=== PATIENT | male | born 1995 | race Caucasian/White ===

== ENCOUNTER 2021-03-12 12:27 | Emergency (ER) | payer SELFPAY ==
[2021-03-12 12:31] VITALS: BP 128/87; PULSE 79; RESP 16; TEMP 36.8; O2SAT 97
--- NOTE | 2021-03-12 12:45 | W.ED.GENAD ---
Discharge Plan Disposition Patient Disposition: HOME Condition: Improving Discharge Details Clinical Impression: Ingrown left big toenail Primary Care Provider: [facility] ED Provider: Babatunde Taylor Home Meds and New Rx's Prescriptions: New cephalexin 500 mg capsule 500 mg PO TID 15 Days Qty: 45 RF: 0 Discharge Instructions Additional Instructions: Please continue warm soaks 3-4 times daily. Take antibiotics as prescribed. Our care management team will assist you in establishing routine primary care as well as follow-up with podiatry. Return to the emergency department for any acute concerns Medical Decision Making 25-year-old male presents from home complaining of days of recurrence of left great toenail ingrown with surrounding swelling, pain. He is not systemically ill. Patient consented as to risk benefits of wedge resection of the lateral nail bed. He was anesthetized, prepped and draped in standard sterile fashion, and a lateral wedge of nail was removed and the area dressed. Patient has had recurrences of ingrown toenails over time and requests podiatry follow-up which I feel is reasonable. Additionally, will ask care management to help arrange establishment of primary care. HPI General Mode of arrival: ambulatory. Date/Time Provider Initiated Documentation: 03/12/21 12:28. Limitations to Documentation: no limitations. Information obtained by: patient. History of Present Illness 25 year old M presents to the emergency department with the chief complaint of Left great toe ingrown and infected, described as moderate, Quality is described as dull and constant, and is localized to the left and lower extremity. Patient reports no radiation. Patient started experiencing this day(s) and it has been constant. No relieving factors improve symptom(s), No exacerbating factors reported . Patient notes denies fever/chills. Patient did receive the following treatments prior to arrival, none Related Data Home Medications Medication Instructions Recorded Confirmed cephalexin 500 mg PO TID 15 Days #45 cap 03/12/21 Previous Rx's Medication Instructions Recorded cephalexin 500 mg PO TID 15 Days #45 cap 03/12/21 Allergies Allergy/AdvReac Type Severity Reaction Status Date / Time No Known Allergies Allergy Unverified 03/12/21 12:34 General Stated Complaint: GenMedical VANNESA: 5 Review of Systems Narrative: No fever or chills. Has had similar ingrown toenails in the past. No current insurance. 6 systems reviewed and otherwise negative [facility] Social History Smoking/Tobacco Use Status: Current-Occasional Tobacco Type: cigarettes Smoking risk assessment performed?: Yes Alcohol Intake: current Alcohol Intake frequency: a few times a week Alcohol type: beer and hard liquor Drug use: Daily Substance use type: marijuana Do you feel safe at home: Yes Do you feel safe in your relationship?: Yes Exam Narrative Exam Narrative: GEN: awake, alert, oriented 3. Pleasant, well groomed, interactive. HEAD: Normocephalic, atraumatic EYES: PERRL, EOMI EXT: Full ROM, nail, swelling, tenderness. Left great toenail with lateral ingrown Neuro: Grossly normal neurologic exam, conversant, interactive. Psych: Speech fluent, thoughts congruent, affect normal Course Vital Signs Vital signs: Vital Signs Temperature 36.8 C 03/12/21 12:31 Pulse 79 03/12/21 12:31 Respiratory Rate 16 03/12/21 12:31 Blood Pressure 128/87 03/12/21 12:31 Pulse Oximetry 97 03/12/21 12:31 Temperature 36.8 C 03/12/21 12:31 Pulse 79 03/12/21 12:31 Respiratory Rate 16 03/12/21 12:31 Respiratory Effort 03/12/21 12:35 Blood Pressure 128/87 03/12/21 12:31 Blood Pressure Position Supine 03/12/21 12:31 Pulse Oximetry 97 03/12/21 12:31 Oxygen Delivery Method Room Air 03/12/21 12:31 Oxygen Flow Rate 0 03/12/21 12:31 Pain Level 2 03/12/21 12:31 Comment 03/12/21 12:31
[2021-03-12] MEDS: Cephalexin 500 MG CAP PO (13:27)
--- NOTE | 2021-03-12 13:30 | NUR.NOTE ---
Addendum entered by Alissa Santos 03/12/21 13:32: Referral given to Care Management to get PCP for patient and help patient to obtain insurance. Alissa Santos Original Note: Nursing Note: Referral faxed to Dr. Olivares, podiatry, for follow up of recurrent ingrown toenails within 1 to 2 weeks. Provider note faxed to Dr. Olivares also. Alissa Santos
== END 2021-03-12 13:29 | disposition home or self-care (01) ==
PROVIDERS: Emergency Provider Emergency Medicine
DX: L60.0 Ingrowing nail (principal)
CPT/HCPCS: 11730

== ENCOUNTER 2025-09-07 10:09 | Emergency (ER) | payer OTHER, SELFPAY ==
--- NOTE | 2025-09-07 10:15 | DI.RAD_ITS ---
Exam(s) XR SHOULDER RT COMPLETE 2+V EXAM: XR SHOULDER RT COMPLETE 2+V CLINICAL HISTORY: R shoulder, fall yesterday. TECHNIQUE: 2D digital imaging was performed. COMPARISON: No exams were available for comparison FINDINGS: Four views No evidence of fracture or dislocation or abnormal soft tissue calcifications. Subacromial space appears unremarkable. Coracoid process is intact. There are no degenerative changes in the glenohumeral joint nor in the AC joint. IMPRESSION: No significant osseous findings in the shoulder. DATA REPOSITORY: RADIATION DOSE DELIVERED:
[2025-09-07 10:22] VITALS: BP 132/80; PULSE 88; RESP 18; TEMP 36.6; O2SAT 98
--- NOTE | 2025-09-07 10:57 | W.ED.GENAD ---
Discharge Plan Disposition Patient Disposition: Home Condition: Stable Discharge Details Clinical Impression: Sprain of right shoulder Primary Care Provider: [facility] ED Provider: Alexis Reed Home Meds and New Rx's Prescriptions: No Action No Known Home Meds Discharge Instructions Instructions: Shoulder Sprain ED Additional Instructions: You were seen in the emergency department for the sprain of your right shoulder from a skiing injury, this is your dominant hand so will likely affect your work and I have given you a work note for no pushing or pulling activities, no lifting over 5 pounds until orthopedics gives you further limitations. Please rest and ice the shoulder, perform pendulum exercises at least once per hour to maintain range of motion, I have placed you on the orthopedic follow-up list and they should call you this week for scheduling. I am concerned that you have a possible rotator cuff tendon injury versus an AC separation. Please use therapeutic dosing of Tylenol (acetamenophen) & Advil (ibuprofen) in an alternating fashion as follows: Take 1000mg of Tylenol every 6 hours without missing doses- that is 4 times per day. Group Home in between the Tylenol dosings, take 400-600mg of Advil also on a 6 hour schedule, that is also 4 times per day. The daily maximum dosing of Tylenol is 4000mg, and the daily maximum dosing of Advil is 2400mg. This is safe to do for weeks. Please note that some common cold medications & prescription pain medications may contain acetamenophen and you need to read OTC drug labels and factor that in to maximum daily dosings. Stand Alone Forms: Portal Information, Work Release Referrals: [facility] [Provider Group] Discharge Data Discharge Date/Time-TO BE ENTERED AT DEPARTURE: 09/07/25 11:30 HPI General Date/Time Provider Initiated Documentation: 09/07/25 10:27. HPI Narrative: 30 year-old female presents to ED today by POV/ambulating with a chief complaint of fell skiing yesterday- injuring his R shoulder, R-hand dominant. Quality described as right shoulder pain in the suprascapular/deltoid region, no radiation to numbness or tingling to distal arm, significant swelling, endorses reduced range of motion due to pain, denies neck pain or head strike or other trauma. Severity is described as moderate. Palliating factors include nothing specific attempted. Provoking factors include certain movements raising his arm and abduction. Patient not anticoagulated. Related Data Home Medications ?Medication ?Instructions ?Recorded ?Confirmed Unknown [No Known Home Meds] 09/07/25 09/07/25 Allergies Allergy/AdvReac Type Severity Reaction Status Date / Time No Known Allergies Allergy Unverified 09/07/25 10:27 General Stated Complaint: Orthopedic VANNESA: 3 Review of Systems All systems reviewed & are unremarkable except as noted in HPI and below Exam Narrative Exam Narrative: GENERAL APPEARANCE: Well-nourished, non-toxic, awake and alert, atraumatic, no acute distress. SKIN: Warm, pink, dry, intact, without rashes/lesions/ulcerations. HEAD: Normocephalic, atraumatic, normal hair distribution for gender/age. EYES: Normal conjunctiva, no exudates on lids/lashes. ENT: Nares patent, no circumoral cyanosis, no facial swelling NECK: Supple, trachea midline, painless cervical ROM. LUNGS/CHEST: Non-labored respirations, normal A/P diameter, symmetrical expansion, no chest wall deformity HEART (CV/PV): Regular rate, no peripheral edema, no JVD. ABDOMEN: Soft, non-distended, no guarding. MSK: No cyanosis, spine midline without tenderness, normal curvature. R SHOULDER: right shoulder tenderness at the distal end of the clavicle, no anterior glenohumeral joint tenderness, speeds and empty can positive, limited range of motion to pain, right radial pulse 2+, no crepitus to humerus NEURO: Mental Status AAOx4 - alert to person, place, time, events No facial droop, no forehead involvement. Motor: No focal weakness save for limits to R shoulder due to acute injury Sensory: sensation intact to light touch globally. Gait normal: patient ambulated without ataxia into ED room. PSYCH: euthymic, cooperative, pleasant, appropriate speech Course Vital Signs Vital signs: Vital Signs Temperature 36.6 C 09/07/25 10:22 Pulse 88 09/07/25 10:22 Respiratory Rate 18 09/07/25 10:22 Blood Pressure 132/80 09/07/25 10:22 Pulse Oximetry 98 09/07/25 10:22 Temperature 36.6 C 09/07/25 10:22 Temperature Source Oral 09/07/25 10:22 Pulse 88 09/07/25 10:22 Respiratory Rate 18 09/07/25 10:22 Blood Pressure 132/80 09/07/25 10:22 Blood Pressure Position Sitting 09/07/25 10:22 Pulse Oximetry 98 09/07/25 10:22 Oxygen Delivery Method Room Air 09/07/25 10:22 Oxygen Flow Rate 0 09/07/25 10:22 Pain Level 8 09/07/25 10:22 Comment 8/10 with activities 09/07/25 10:22 Medical Decision Making This dictation utilizes [id number] dictation software and may contain unedited grammatical errors. 30 year-old female presents to ED today by POV/ambulating with a chief complaint of fell skiing yesterday- injuring his R shoulder, R-hand dominant. Quality described as right shoulder pain in the suprascapular/deltoid region, no radiation to numbness or tingling to distal arm, significant swelling, endorses reduced range of motion due to pain, denies neck pain or head strike or other trauma. Severity is described as moderate. Palliating factors include nothing specific attempted. Provoking factors include certain movements raising his arm and abduction. Patients' medical history: Noncontributory. Family and social history: Active in sports, works in construction. Pertinent exam findings / vital signs include right shoulder tenderness at the distal end of the clavicle, no anterior glenohumeral joint tenderness, speeds and empty can positive, limited range of motion to pain, right radial pulse 2+, no crepitus to humerus. Differential / pathologies of concern include AC separation, rotator cuff arthropathy, fracture. Diagnostic studies of: - XR R shoulder-no acute fracture seen, I do agree with the read read that there is slight elevation of the distal end of the clavicle which makes sense with the patient's pain. Interventions of: - Recommend pendulum exercises, RICE therapy, Tylenol and ibuprofen and following up with orthopedics if it does not improve in 2 weeks. ED Course/Assessment/Plan: 30-year-old otherwise healthy male presents with right shoulder pain, he has slight elevation of the distal end of the clavicle indicating a possible grade 1 AC separation, he has some special tests of the shoulder like speeds and empty can positive for suspicious for rotator cuff arthropathy, there is no fracture, counseled him on not lifting more than 5 pounds at work and placed upon orthopedic follow-up list, recommend therapeutic dosing Tylenol and ibuprofen and performing at least hourly pendulum exercises while awake, recommend ice. Findings not consistent with fracture or neurovascular compromise. Disposition of Sprain of Right Shoulder. Patient verbalized understanding of the plan and return to ED criteria and engaged in shared decision making. Medical Records Medical records reviewed: Yes I reviewed the patient's medical records. Imaging Data Radiologic Study: Attestation: I personally reviewed and interpreted this imaging study as follows: Imaging: X-Ray My impression: Agree with vRAD read. Radiologist's impression: Exam: XR Right Shoulder Exam date and time: 09/07/2025 10:58 AM Age: 30 years old Clinical indication: Other: Right shoulder pain TECHNIQUE: Imaging protocol: Radiologic exam of the right shoulder. Views: 2 or more views. COMPARISON: No relevant prior studies available. FINDINGS: Bones/joints: The clavicle is mildly elevated with respect to the acromion. This may represent acromioclavicular dissociation .. There is no evidence of acute fracture.There is no evidence of dislocation. Soft tissues: Normal. IMPRESSION: 1. The clavicle is mildly elevated with respect to the acromion. This may represent acromioclavicular dissociation .. 2. There is no evidence of acute fracture.There is no evidence of dislocation. Dictated and Authenticated by: Talat Parada MD. EXAM: XR SHOULDER RT COMPLETE 2+V CLINICAL HISTORY: R shoulder, fall yesterday. TECHNIQUE: 2D digital imaging was performed. COMPARISON: No exams were available for comparison FINDINGS: Four views No evidence of fracture or dislocation or abnormal soft tissue calcifications. Subacromial space appears unremarkable. Coracoid process is intact. There are no degenerative changes in the glenohumeral joint nor in the AC joint. IMPRESSION: No significant osseous findings in the shoulder. PFSH All Active Problems (Updated 09/07/25 @ 11:17 by SHARRON Acuna) Sprain of right shoulder (Acute) Ingrown left big toenail (Acute) Social History Smoking/Tobacco Use Status: Current-Occasional Tobacco Type: cigarettes Smoking risk assessment performed?: Yes Alcohol Intake: current Alcohol Intake frequency: a few times a week Alcohol type: beer and hard liquor Details: patient denies any substance use Do you feel safe at home: Yes Do you feel safe in your relationship?: Yes
--- NOTE | 2025-09-07 11:25 | DI.VRAD_ITS ---
PROCEDURE INFORMATION: Exam: XR Right Shoulder Exam date and time: 09/07/2025 10:58 AM Age: 30 years old Clinical indication: Other: Right shoulder pain TECHNIQUE: Imaging protocol: Radiologic exam of the right shoulder. Views: 2 or more views. COMPARISON: No relevant prior studies available. FINDINGS: Bones/joints: The clavicle is mildly elevated with respect to the acromion. This may represent acromioclavicular dissociation .. There is no evidence of acute fracture.There is no evidence of dislocation. Soft tissues: Normal. IMPRESSION: 1. The clavicle is mildly elevated with respect to the acromion. This may represent acromioclavicular dissociation .. 2. There is no evidence of acute fracture.There is no evidence of dislocation. Dictated and Authenticated by: Talat Parada MD. Orderin Brianna Espinoza MD
== END 2025-09-07 11:30 | disposition home or self-care (01) ==
PROVIDERS: Emergency Provider Physician Assistant
DX: S43.401A Unspecified sprain of right shoulder joint, initial encounter (principal); V00.321A Fall from snow-skis, initial encounter; Y93.23 Activity, snow (alpine) (downhill) skiing, snowboarding, sledding, tobogganing and snow tubing
CPT/HCPCS: 99283 ×2; 73030